=== PATIENT | female | born 1965 | race Caucasian/White ===

== ENCOUNTER → 2019-03-26 | Day surgery (SDC) | payer MEDICAID ==
[~2019-03-26] MED LIST: BISMATROL262 MG/15 PO; DEPAKOTE SPRIN125 MG PO; DILANTIN100 MG PO; ENSURE ACTIVE237 M1 PO; IBUPROFEN 400400 M2 PO; MILK OF MA400 MG/5 M PO; REMERON 30 MG T30 M1 PO; SILTUSSIN100 MG/5 M PO; TYLENOL325 MG PO
[2019-03-26 10:49] LABS: HEMATOCRIT 41.7 % (37.0-47.0); HEMOGLOBIN 14.1 gm/dL (12.0-15.0); MCH 31.4 pg (26.0-34.0); MCHC 33.8 g/dL (28.0-37.0); MCV 92.9 fL (80.0-100.0); MPV 8.3 fl. (7.2-11.1); RBC 4.49 mil/uL (4.20-5.00); RDW-CV 14.1 % (10.5-14.5); WBC 6.4 thou/uL (4.0-11.0)
[2019-03-26 10:55] LABS: CALCIUM 9.3 mg/dL (8.5-10.1); POTASSIUM 4.2 mmol/L (3.5-5.1)
[2019-03-26 11:00] LABS: ALBUMIN 3.1 g/dL (3.4-5.0); TOTAL BILIRUBIN 0.2 mg/dL (<0.1-1.0); TOTAL PROTEIN 8.6 g/dL (6.4-8.2)
== END | disposition home or self-care (01) ==
LOC: M.SUR 09:43
PROVIDERS: Student in an Organized Health Care Education/Training Program
DX: R13.10 Dysphagia, unspecified (principal); Z43.1 Encounter for attention to gastrostomy; K21.9 Gastro-esophageal reflux disease without esophagitis; Z79.899 Other long term (current) drug therapy

== ENCOUNTER → 2019-04-02 | Outpatient (CLI) | payer MEDICAID ==
[2019-04-02 09:18] VITALS: BP 133/85
== END | disposition home or self-care (01) ==
LOC: M.INT 08:26
DX: Z43.1 Encounter for attention to gastrostomy (principal); Z79.899 Other long term (current) drug therapy

== ENCOUNTER 2019-10-24 22:26 | Observation (INO) | payer MEDICAID ==
[~2019-10-24] VITALS: Ht 147.3 cm; Wt 34.4 kg
--- NOTE | 2019-10-24 22:33 | NUR ---
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
[2019-10-24] MEDS ORDERED: JEVITY 1.2 CAL237 ML (22:44)
[2019-10-24] MEDS ORDERED: PHENYTOIN125 MG/52 (22:45)
[2019-10-24] MEDS ORDERED: VALPROIC A250 MG/51 (22:45)
[2019-10-24] MEDS ORDERED: ACETAMINOPHEN325 MG (22:46)
[2019-10-24] MEDS ORDERED: BISMATROL262 MG/15 (22:47)
[2019-10-24] MEDS ORDERED: MILK OF MA400 MG/5 M (22:48)
[2019-10-24] MEDS ORDERED: IBU400 MG (22:48)
[2019-10-24] MEDS ORDERED: ROBAFEN100 MG/5 M (22:49)
[2019-10-24 22:51] VITALS: BP 112/75
--- NOTE | 2019-10-25 02:19 | NUR ---
CONSENT GRANTED FOR ADMISSION PER LEONARD FLORENCE ([facility] TEACHER ASSISTANT'S OFFICE) [phone]
[2019-10-25 02:37] LABS: ABSOLUTE LYMPHOCYTES 2.7 thou/uL (0.8-5.3); ABSOLUTE MONOCYTES 0.7 thou/uL (0.0-1.2); ABSOLUTE NEUTROPHILS 4.5 thou/uL (1.6-8.1); BASOPHILS 0.5 %; EOSINOPHILS 0.5 %; HEMATOCRIT 38.7 % (37.0-47.0); HEMOGLOBIN 13.3 gm/dL (12.0-15.0); LYMPHOCYTES 33.8 %; MCH 32.1 pg (26.0-34.0); MCHC 34.4 g/dL (28.0-37.0); MCV 93.3 fL (80.0-100.0); MPV 9.6 fl. (7.2-11.1); NUCLEATED RBCS 0 /100WBC; PLATELET COUNT* 232 thou/uL (150-400); POLYS 56.2 %; RBC 4.14 mil/uL (4.20-5.00); RDW-CV 13.6 % (10.5-14.5); WBC 7.9 thou/uL (4.0-11.0)
[2019-10-25 02:59] LABS: ALBUMIN 2.7 g/dL (3.4-5.0); CALCIUM 8.2 mg/dL (8.5-10.1); CREATININE 0.8 mg/dL (0.6-1.3); POTASSIUM 3.7 mmol/L (3.5-5.1); TOTAL BILIRUBIN 0.3 mg/dL (<0.1-1.0); TOTAL PROTEIN 7.6 g/dL (6.4-8.2)
[2019-10-25 03:00] VITALS: BP 127/87
[2019-10-25 03:30] VITALS: BP 125/84
--- NOTE | 2019-10-25 08:04 | NUR ---
Pt arrived with caregiver to unit from ED at 0330. Pt answers yes/no questions appropriately, but not conversational. [facility] and is a hern[facility]dez of the [facility]. Pt had G tube placed in February per IR. Pat, her caregiver, reports that G tube was placed because pt had stopped eating; however, pt is capable of eating and drinking. VSS. NPO for placement of new G tube. Pt currently has new G tube in old site which was placed in ED, though it is not fully in the stomach per CT. Will continue to monitor.
[2019-10-25 08:08] VITALS: BP 102/72
[2019-10-25 14:09] VITALS: BP 102/72
[2019-10-25 15:47] LABS: URINE BILIRUBIN NEGATIVE (Negative); URINE BLOOD NEGATIVE (Negative); URINE CLARITY CLEAR; URINE COLOR YELLOW; URINE GLUCOSE-RANDOM NEGATIVE (Negative); URINE KETONES NEGATIVE (Negative); URINE LEUKOCYTES-REFLEX NEGATIVE (Negative); URINE NITRITE-REFLEX NEGATIVE (Negative); URINE PROTEIN NEGATIVE (Negative); URINE SPECIFIC GRAVITY 1.015 (1.005-1.030); URINE UROBILINOGEN 0.2 E.U./dl (0.2-1.0)
--- NOTE | 2019-10-25 15:53 | NUR ---
PT DISCHARGED AT 1552 BY WHEELCHAIR WITH NURSING STAFF AND CASHIER CLERK. IV OUT. PERSONAL BELONGINGS SENT WITH PT. NO PRESCRIPTIONS.
--- NOTE | 2019-10-25 16:26 | NUR ---
Pt nurse discussed with SW of pt dc today and order/recommendation for HH SW to follow for pt at [facility]; possible malnutrition concern, G Tube education and disease management. SW called [facility] [employer] [facility] Team Leader's office and informed of dc plan and faxed dc information as requested. HH arranged for RN follow up as no SW available, RN would be able to hotline if needed and provide needed follow up services through [facility]. Pt caregiver provided pt ride home.
== END 2019-10-25 16:02 | disposition home or self-care (01) ==
LOC: M.ERS 22:26 → M.ORTHSURG 10-25 02:09 → M.TBA-ER 10-25 02:09 → M.ORTHSURG 10-25 02:09
PROVIDERS: Emergency Medicine Emergency Medical Services; ADMIT Internal Medicine
DX: K94.23 Gastrostomy malfunction (principal); G80.9 Cerebral palsy, unspecified; G40.909 Epilepsy, unspecified, not intractable, without status epilepticus; K59.00 Constipation, unspecified; Z79.899 Other long term (current) drug therapy

== ENCOUNTER 2019-10-26 08:22 | Emergency (ER) | payer MEDICAID ==
[~2019-10-26] VITALS: Ht 147.3 cm; Wt 34.0 kg
[~2019-10-26 08:22] MED LIST changes: +ACETAMINOPHEN325 MG; +BISMATROL262 MG/15; +IBU400 MG; +JEVITY 1.2 CAL237 ML; +MILK OF MA400 MG/5 M; +PHENYTOIN125 MG/52; +ROBAFEN100 MG/5 M; +VALPROIC A250 MG/51
[2019-10-26 10:42] VITALS: BP 103/67
== END 2019-10-26 10:43 | disposition home or self-care (01) ==
LOC: M.ERS 08:22
DX: K94.23 Gastrostomy malfunction (principal)

== ENCOUNTER 2020-07-02 22:04 | Emergency (ER) | payer MEDICAID ==
[~2020-07-02] VITALS: Ht 149.9 cm; Wt 32.7 kg
[2020-07-03] VITALS: BP 112/72
== END 2020-07-03 00:05 | disposition home or self-care (01) ==
LOC: M.ERS 22:04
DX: K94.29 Other complications of gastrostomy (principal)

== ENCOUNTER → 2020-07-11 | Outpatient (CLI) | payer MEDICAID | LOC: M.INT 09:00 | PROVIDERS: ATTEND Radiology Diagnostic Radiology | DX: K94.23 Gastrostomy malfunction (principal); Z79.899 Other long term (current) drug therapy ==

== ENCOUNTER 2020-10-04 14:32 | Emergency (ER) | payer MEDICAID ==
[~2020-10-04] VITALS: Ht 144.8 cm; Wt 32.7 kg
[2020-10-04 14:47] VITALS: BP 138/91
[2020-10-04] MEDS ORDERED: DEPAKOTE250 MG PO (14:51)
== END 2020-10-04 18:21 | disposition home or self-care (01) ==
LOC: M.ERS 14:32
DX: K94.29 Other complications of gastrostomy (principal)

== ENCOUNTER → 2020-10-10 | Outpatient (CLI) | payer MEDICAID ==
[~2020-10-10] VITALS: Ht 144.8 cm; Wt 29.9 kg
[~2020-10-10] MED LIST changes: +DEPAKOTE250 MG PO
[2020-10-10 09:50] LABS: HEMATOCRIT 35.6 % (37.0-47.0); MCH 30.9 pg (26.0-34.0); MCHC 33.6 g/dL (28.0-37.0); MPV 8.6 fl. (7.2-11.1); RBC 3.87 mil/uL (4.20-5.00); RDW-CV 13.9 % (10.5-14.5)
[2020-10-10 09:55] LABS: CALCIUM 8.6 mg/dL (8.5-10.1); CREATININE 0.7 mg/dL (0.6-1.3)
[2020-10-10 10:00] LABS: ALBUMIN 2.5 g/dL (3.4-5.0); TOTAL BILIRUBIN 0.3 mg/dL (<0.1-1.0); TOTAL PROTEIN 8.6 g/dL (6.4-8.2)
[2020-10-10 10:08] VITALS: BP 112/73
[2020-10-10 10:23] LABS: APTT 24.1 Seconds (25.0-31.3); INR 1.1; PROTIME 10.8 Seconds (9.20-11.50)
== END | disposition home or self-care (01) ==
LOC: M.INT 08:51
PROVIDERS: Radiology Diagnostic Radiology; ATTEND Emergency Medicine
DX: K94.23 Gastrostomy malfunction (principal); Z98.890 Other specified postprocedural states; Z79.899 Other long term (current) drug therapy

== ENCOUNTER → 2021-01-30 | Outpatient (CLI) | payer MEDICAID ==
[~2021-01-30] VITALS: Ht 149.9 cm; Wt 39.5 kg
[2021-01-30 09:58] VITALS: BP 116/69
== END | disposition home or self-care (01) ==
LOC: M.INT 08:58
PROVIDERS: ATTEND Radiology Diagnostic Radiology
DX: K94.23 Gastrostomy malfunction (principal); Z98.890 Other specified postprocedural states; Z79.899 Other long term (current) drug therapy

== ENCOUNTER → 2021-07-27 | Outpatient (CLI) | payer MEDICAID ==
[~2021-07-27] VITALS: Ht 147.3 cm; Wt 34.0 kg
[2021-07-27 10:12] VITALS: BP 94/63
== END | disposition home or self-care (01) ==
LOC: M.INT 08:41
PROVIDERS: ATTEND Radiology Diagnostic Radiology
DX: K94.23 Gastrostomy malfunction (principal); Z98.890 Other specified postprocedural states